=== PATIENT | female | born 1975 | race Caucasian/White ===

== ENCOUNTER 2016-09-09 17:15 | Emergency (ER) ==
[2016-09-09 17:19] VITALS: BP 127/79; TEMP 97.9; BMI 28.2
--- NOTE | 2016-09-09 17:24 | ED.PDOC ---
General ED Provider: Dr. VIANEY SANCHEZ JR Chief Complaint: Kidney Stone Stated Complaint: onset pain to rt side yesterday--hx kidney stent in left kidney--has sm stone in rt at that time which did not require further--pain comes and goes. [ End ]12/19. back pain/kidney stone. NAUSEA 2 DAYS Time Seen by Physician: 17:24 Mode of Arrival: Walk-In Information Source: Patient Exam Limitations: No limitations Nursing and Triage Documentation Reviewed and Agree: No Review of Systems - Review Of Systems Constitutional: Reports: No symptoms Eyes: Reports: No symptoms Ears, Nose, Mouth, Throat: Reports: No symptoms Respiratory: Reports: No symptoms Cardiac: Reports: No symptoms GI: Reports: Abdominal pain : Reports: Flank pain Musculoskeletal: Reports: Back pain Skin: Reports: No symptoms Neurological: Reports: No symptoms Endocrine: Reports: No symptoms Hematologic/Lymphatic: Reports: No symptoms All Other Systems: Other Past Medical History - Past Medical History Endocrine: Reports: None Cardiovascular: Reports: None Respiratory: Reports: None Hematological: Reports: None Gastrointestinal: Reports: None Genitourinary: Reports: Kidney stones Neuro/Psych: Reports: Migraine Musculoskeletal: Reports: None Cancer: Reports: None Last Menstrual Period: last week Other Pertinent Past Medical History: TUBAL LIGATION, TUBAL REVERSAL, - Surgical History General Surgical History: Reports: Tubal ligation ( TUBAL LIGATION, TUBAL REVERSAL, IUD), Cholecystectomy, Other - Family History Family History: Reports: Unknown - Social History Smoking Status: Never smoker Hx Substance Use: No Alcohol Screening: None Physical Exam - Physical Exam Appearance: Well-appearing Neck: Supple Respiratory: Airway patent GI/: Nontender Musculoskeletal: Normal strength (no nbak tenderness) Skin: Warm, Dry, Normal color Neurological: Sensation intact, Motor intact, Reflexes intact, Cranial nerves intact, Alert, Oriented Psychiatric: Affect appropriate, Mood appropriate Critical Care Note - Critical Care Note Total Time (mins): 0 Course - Course Orders, Labs, Meds: Lab Review 09/09/16 17:35 Urine Color Yellow Urine Clarity Cloudy Urine pH 7.0 Ur Specific Bradford 1.020 Urine Protein Negative Urine Glucose (UA) Negative Urine Ketones Negative Urine Blood 2+ Urine Nitrite Negative Urine Bilirubin Negative Urine Urobilinogen 0.2 Ur Leukocyte Esterase Trace Urine Microscopic RBC 0-2 Urine Microscopic WBC 0-2 Ur Squamous Epith Cells 50-100 Orders Category Date Time Status UA [URINALYSIS C & S IF INDICATED] Stat LAB 09/09/16 17:35 Completed Ketorolac Tromethamine [Toradol] MEDS 09/09/16 17:40 Discontinued 60 mg IM ONCE STA CT ABDOMEN/PELVIS WO CONTRAST Stat RADS 09/09/16 18:15 Taken Medications Discontinued Medications Generic Name Dose Route Start Last Admin Trade Name Devendra PRN Reason Stop Dose Admin Ketorolac Tromethamine 60 mg 09/09/16 17:40 09/09/16 17:51 Toradol IM 09/09/16 17:41 60 mg ONCE STA Administration Vital Signs: Temp Pulse Resp BP Pulse Ox 09/09/16 17:15 97.9 F 91 H 20 127/79 98 Departure - Departure Time of Disposition: 18:52 Disposition: HOME SELF-CARE Discharge Problem: Kidney stone Instructions: Ureteral Stones (ED) Condition: Good Pt referred to PMD for follow-up: Yes Additional Instructions: CALL PMD IN MORNING FOR UROLOGY REFERRAL RETURN IF FEVER OVER 101.0 IF PAIN NOT CONTROLLED IF VISIBLE BLOOD IN URINE TORADOL FOR PAIN INCREASE CLEAR LIQUIDS DISCUSS DIET WITH UROLOGIST STONE FOR ANALYSIS STRAIN ALL URINE Prescriptions: Ketorolac Tromethamine [Toradol] 10 mg PO QID PRN #20 tablet PRN Reason: PAIN Tamsulosin HCl [Flomax] 0.4 mg PO DAILY #30 cap.er.24h Allergies/Adverse Reactions: Allergies No Known Allergies Allergy (Verified 09/09/16 17:20) Home Medications: Ambulatory Orders Topiramate [Topamax] 100 mg PO BID 11/06/15 Imitrex 25 mg PO DIRECTED PRN 05/20/16 Ketorolac Tromethamine [Toradol] 10 mg PO QID PRN #20 tablet 09/09/16 Tamsulosin HCl [Flomax] 0.4 mg PO DAILY #30 cap.er.24h 09/09/16
[2016-09-09] MEDS ORDERED: TORADOL IM STA (17:40)
[2016-09-09 17:48] LABS: BILIRUBIN,URINE Negative (NEGATIVE); KETONES,URINE Negative (NEGATIVE); LEUKOCYTE ESTERASE ,URINE Trace (NEGATIVE); NITRITE,URINE Negative (NEGATIVE); PROTEIN,URINE Negative (NEGATIVE); URINE, BLOOD 2+ (NEGATIVE)
[2016-09-09 17:52] LABS: ADD URINE MICROSCOPIC YES
--- NOTE | 2016-09-09 19:33 | CT ---
Exam: CT of the abdomen and pelvis without contrast History: Hematuria and right flank pain Technique: [address] of the abdomen pelvis without intravascular contrast FINDINGS: The lung bases are clear. No significant liver abnormality. The adrenals, pancreas and sp jermain are unremarkable. The stomach and hiatus are unremarkable.Prior cholecystectomy. There is a 6 mm nonobstructing calculus in the right kidney. There is a punctate nonobstructing calculus in the left kidney. The kidneys and collecting system are unremarkable otherwise. The appendix is normal. Bowel loops demonstrate normal caliber. No inflamatory change seen in the mesentery or retroperiton eum. Vascular structures appear normal by noncontrast CT. Intrauterine device in place. Otherwise, Pelvic genitourinary structures appear normal. Pelvic titus l loops are unremarkable. No inflammatory change in the pelvic fat. No acute abnormality of the abdo mihai or pelvic skeleton. Impression: 1. No inflammatory process, bowel or urinary obstruction is seen. 2. Bilateral nonobstructing nephrolithiasis
== END 2016-09-09 19:42 | disposition home or self-care (01) ==
LOC: ED 17:15
DX: N20.0 Calculus of kidney (principal); Z87.442 Personal history of urinary calculi
CPT/HCPCS: 81001; 96372; 99283

== ENCOUNTER 2016-11-08 16:38 | Emergency (ER) ==
[2016-11-08 16:54] VITALS: BP 134/96; TEMP 97; BMI 29.8
--- NOTE | 2016-11-08 17:41 | DI ---
EXAM: RIGHT FOREARM, 2 VIEWS HISTORY: Forearm pain FINDINGS: No displaced fracture or bony erosion. Joints are within normal limits. No joint disloc ation or effusion. Soft tissues within normal limits. IMPRESSION: Within normal limits.
--- NOTE | 2016-11-08 17:41 | DI ---
EXAM: Three views of the right hand. HISTORY: Pain. FINDINGS: The bones are intact with no evidence of fracture. The joint spaces are maintained. No so ft tissue abnormality. Impression: Negative right hand.
--- NOTE | 2016-11-08 17:43 | DI ---
EXAM: RIGHT WRIST THREE VIEWS HISTORY: Wrist pain FINDINGS: Bone and joint structures appear normal. No joint dislocation, displaced fracture or b one density abnormality. Soft tissues are within normal limits. No arthritic change. IMPRESSION: No fracture or dislocation is identified. If symptoms are severe or persistent, follow- up imaging is recommended.
--- NOTE | 2016-11-08 17:45 | ED.PDOC ---
General ED Provider: Dr. MEREDITH SANCHEZ Chief Complaint: Wrist Pain/Injury Stated Complaint: wrist pain right Time Seen by Physician: 16:45 (seen with staff ) Mode of Arrival: Walk-In Information Source: Patient Exam Limitations: No limitations [facility] Nursing and Triage Documentation Reviewed and Agree: Yes (HISTORT OF CARAP TUNNEL) Musculoskeletal Complaint Exam - Hand/Wrist Complaint/Exam Location of Pain: Reports: Right, Wrist Mechanism of Injury: Reports: No known trauma Onset/Duration: 16:45 Symptoms Are: Still present Initial Severity: Moderate Current Severity: Moderate Character: Reports: Aching, Throbbing Alleviating: Reports: Rest Aggravating: Reports: Movement Associated Signs and Symptoms: Denies: Swelling, Redness, Bruising, Fever, Weakness, Numbness, Tingling Related History: Reports: Similar episode Dominant Hand: Right Hand/Wrist Findings: Present: Tinel's Sign, Phalen's Sign. Absent: Swelling, Abnormal contour, Ligamentous instability Compartment Syndrome Risk Factors: Present: Pain Differential Diagnoses: Carpal Tunnel Syndrome, Closed Fracture Review of Systems - Review Of Systems Constitutional: Reports: No symptoms Eyes: Reports: No symptoms Ears, Nose, Mouth, Throat: Reports: No symptoms Respiratory: Reports: No symptoms Cardiac: Reports: No symptoms GI: Reports: No symptoms : Reports: No symptoms Musculoskeletal: Reports: Joint pain Skin: Reports: No symptoms Neurological: Reports: No symptoms Endocrine: Reports: No symptoms Hematologic/Lymphatic: Reports: No symptoms All Other Systems: Reviewed and Negative Past Medical History - Past Medical History Endocrine: Reports: None Cardiovascular: Reports: None Respiratory: Reports: None Hematological: Reports: None Gastrointestinal: Reports: None Genitourinary: Reports: Kidney stones Neuro/Psych: Reports: Migraine Musculoskeletal: Reports: None Cancer: Reports: None Last Menstrual Period: N/A Other Pertinent Past Medical History: TUBAL LIGATION, TUBAL REVERSAL, - Surgical History General Surgical History: Reports: Tubal ligation ( TUBAL LIGATION, TUBAL REVERSAL, IUD), Cholecystectomy, Other - Family History Family History: Reports: Unknown - Social History Smoking Status: Never smoker Hx Substance Use: No Alcohol Screening: None - Immunizations Tetanus Shot up to Date: Yes Physical Exam - Physical Exam Appearance: Well-appearing, No pain distress, Well-nourished Eyes: JESSICA, EOMI, Conjunctiva clear ENT: Ears normal, Nose normal, Oropharynx normal Respiratory: Airway patent, Breath sounds clear, Breath sounds equal, Respirations nonlabored Cardiovascular: RRR, Pulses normal, No rub, No murmur GI/: Soft, Nontender, No masses, Bowel sounds normal, No Organomegaly Musculoskeletal: Limited ROM Skin: Warm, Dry, Normal color Neurological: Sensation intact, Motor intact, Reflexes intact, Cranial nerves intact, Alert, Oriented Psychiatric: Affect appropriate, Mood appropriate Critical Care Note - Critical Care Note Total Time (mins): 0 Course - Course Orders, Labs, Meds: Orders Category Date Time Status FOREARM, RIGHT 2 VIEWS Stat RADS 11/08/16 17:16 Completed HAND, RIGHT 3 VIEWS Stat RADS 11/08/16 17:15 Completed WRIST, RIGHT 3 VIEWS Stat RADS 11/08/16 17:16 Taken Vital Signs: Temp Pulse Resp BP Pulse Ox 11/08/16 16:39 97 F L 93 H 20 134/96 H 96 Departure - Departure Time of Disposition: 17:46 Disposition: HOME SELF-CARE Discharge Problem: Pain in wrist Acute carpal tunnel syndrome Qualifiers: Laterality: right Qualifier Code: (G56.01) Carpal tunnel syndrome, right upper limb Instructions: Paresthesia (ED) Condition: Good Pt referred to PMD for follow-up: No Additional Instructions: Please call your Family Physician as soon as possible to schedule a follow-up appointment. you must keep the splint on follow with clinic for nerve conduction study SAUNDRA Allergies/Adverse Reactions: Allergies No Known Allergies Allergy (Verified 11/08/16 16:49) Home Medications: Ambulatory Orders Topiramate [Topamax] 100 mg PO BID 11/06/15 Imitrex 25 mg PO DIRECTED PRN 05/20/16 Disposition Discussed With: Patient
== END 2016-11-08 17:53 | disposition home or self-care (01) ==
LOC: ED 16:38
DX: G56.01 Carpal tunnel syndrome, right upper limb (principal)
CPT/HCPCS: 99282

== ENCOUNTER 2017-03-03 08:34 | Outpatient (CLI) ==
[2017-03-03 09:46] LABS: BASOPHILS % (AUTO) 0.5 % (0.0-3.0); EOSINOPHILS # (AUTO) 0.1 K/ul (0.0-0.7); EOSINOPHILS % (AUTO) 1.8 % (0.0-7.0); HEMATOCRIT 37.9 % (37.0-47.0); HEMOGLOBIN 12.7 g/dl (12.0-16.0); LYMPHOCYTES # (AUTO) 1.5 K/uL (0.60-3.4); MEAN CORPUSCULAR HEMOGLOBIN 29.5 pg (27.0-31.0); MEAN CORPUSCULAR HGB CONC 33.5 (31.8-35.4); MEAN CORPUSCULAR VOLUME 87.9 fl (81.0-99.0); MONOCYTES # (AUTO) 0.5 K/uL (0.4-2.0); MONOCYTES % (AUTO) 12.3 (0-10); NEUTROPHILS # (AUTO) 1.9 K/ul (2.0-6.9); NEUTROPHILS % (AUTO) 46.4; PLATELET COUNT 226 10^3/uL (140-440); RED BLOOD COUNT 4.31 10^6/ul (4.20-5.40)
[2017-03-03 10:23] LABS: ALBUMIN 3.4 g/dL (3.4-5.0); ALBUMIN/GLOBULIN RATIO 0.97; ANION GAP 8.5; BILIRUBIN,TOTAL 0.4 mg/dL (0.00-1.20); BUN/CREATININE RATIO 18.46; CALCIUM 9.2 mg/dL (8.2-10.2); CHOL/HDL RATIO 3.7 (4.5-5.5); CREATININE 0.65 mg/dL (0.60-1.30); POTASSIUM 4.5 mmol/L (3.5-5.10); TOTAL PROTEIN 6.9 g/dL (6.4-8.2)
--- NOTE | 2017-03-03 10:52 | MRI ---
EXAM: MRI left knee without contrast. HISTORY: Left knee pain. Medial side. No known injury. Swelling. Pops. Feels like it locks. No left knee surgery reported.. TECHNIQUE: Using a local extremity coil on a high field strength magnet multiplanar multisequence ma gnet resonance imaging was performed of the left knee without intravenous or intra-articular gadolini um contrast. FINDINGS: I do not have prior radiographs of the left knee available for comparison at the time of t his dictation.. Within the medial compartment the medial meniscus is intact without discrete surfacing meniscal tear. Some focal chondrosis over the posterior nonweight bearing medial femoral condyle. No underlying s ubchondral edema. Within the lateral compartment lateral meniscus is intact without discrete surfacing meniscal tear. The lateral compartment cartilage congruent without focal underlying subchondral edema. Within the patellofemoral compartment the patella seated. Intact medial and lateral patellar retinac ulum. Approximate 7 mm area of suspected chondrosis and cartilage fissuring over the more inferior m edial trochlear groove. Mild chondrosis over the medial facet of the patella. Trace left effusion. Some edema over the more medial aspect of the suprapatellar fat. No osteochondra l loose bodies. Intact anterior and posterior cruciate ligament fibers. The extensor mechanism is i ntact. Patellar tendinosis. The medial collateral ligament as well as lateral collateral ligament c omplex and posterolateral corner intact.. IMPRESSION: No discrete surfacing meniscal tear identified. Approximate 7 mm area of suspected chondrosis and cartilage fissuring over the more inferior medial t rochlear groove. Mild chondrosis over the medial facet of the patella. Some edema over the more medi al aspect of the suprapatellar fat. Trace left effusion. Intact cruciate and collateral ligaments. Patellar tendinosis. Recommendation is obtainment and correlation with plain film radiographs of the left knee as none are available for comparison at the time of this dictation.
== END 2017-03-03 08:35 | disposition home or self-care (01) ==
LOC: RAD 08:34
PROVIDERS: ATTEND Nurse Practitioner Family
DX: M25.562 Pain in left knee (principal); G89.29 Other chronic pain; M23.8X2 Other internal derangements of left knee; Z00.00 Encounter for general adult medical examination without abnormal findings
CPT/HCPCS: 36415; 80053; 80061; 84443; 85025

== ENCOUNTER 2017-03-10 11:00 | Outpatient (CLI) ==
--- NOTE | 2017-03-10 12:09 | MAMMO ---
EXAM: Bilateral digital screening mammogram (2-D and 3-D) History: Baseline screening Findings: MLO and CC views of bilateral breasts demonstrate heterogeneously dense breast parenchyma which can obscure small lesions. CAD was reviewed by the radiologist. Tomosynthesis was performed. There are no dominant masses, no suspicious microcalcifications and no architectural distortions. Sm all well circumscribed benign bilateral nodular densities Impression: Benign mammogram. Recommend followup routine screening mammography in 1 year. BIRADS 2
== END 2017-03-10 11:01 | disposition home or self-care (01) ==
LOC: RAD 11:00
PROVIDERS: ATTEND Nurse Practitioner Family
DX: Z12.31 Encounter for screening mammogram for malignant neoplasm of breast (principal)
CPT/HCPCS: 77067

== ENCOUNTER 2017-03-24 08:16 | Outpatient (CLI) ==
--- NOTE | 2017-03-25 10:16 | HOLTER ---
PATIENT INFORMATION AND COMMENTS Ordering Physician: KARISSA MAKI APRN Indications: CARDIAC ARRHYTHMIAS __ Patient Medications: TOPAMAX, EXCEDRIN MIGRAINE __ Pre-procedure Summary: Protocol: Standard Heart Rate Started: 03/24/17845 Minimum: 51 Weight: 190 LBS Ended: 03/25/17845 Maximum: 140 Height: 56" Duration: 24 HRS Average: 78 _ INTERPRETATIONS/OBSERVATIONS: 1. BASIC RHYTHM: SINUS, RATE 50 BPM TO 130 BPM, AVERAGE 80 BPM 2. RARE PAC'S AND PVC'S 3. ONE RUN OF 7 BEAT VENTRICULAR TACHYCARDIA NOTED AT 4:50 PM (3211) 4. NO ST-T WAVE CHANGES FROM BASELINE 5. ACTIVITY LOG: NOT MAINTAINED MTDD
== END 2017-03-24 08:17 | disposition home or self-care (01) ==
LOC: CAR 08:16
PROVIDERS: ATTEND Nurse Practitioner Family
DX: I49.8 Other specified cardiac arrhythmias (principal)
CPT/HCPCS: 93227

== ENCOUNTER 2017-09-26 14:57 | Outpatient (CLI) | END 2017-09-26 14:58 | disposition home or self-care (01) | LOC: LAB 14:57 | PROVIDERS: ATTEND Nurse Practitioner Family | DX: N64.4 Mastodynia (principal) | CPT/HCPCS: 36415; 84703 ==